=== PATIENT | female | born 1960 | race Caucasian/White ===

== ENCOUNTER → 2017-05-10 | Outpatient (CLI) | payer OTHER, BC | LOC: MC.RAD 05-03 13:20 | DX: Z12.31 Encounter for screening mammogram for malignant neoplasm of breast (principal) ==

== ENCOUNTER → 2017-08-05 | Outpatient (CLI) | payer OTHER, BC | LOC: COL.RAD 10:53 | DX: N20.0 Calculus of kidney (principal); K44.9 Diaphragmatic hernia without obstruction or gangrene; Z90.710 Acquired absence of both cervix and uterus | CPT/HCPCS: J7050; Q9967 ==

== ENCOUNTER → 2018-08-12 | Outpatient (CLI) | payer OTHER, BC | LOC: MC.RAD 06-11 13:00 | DX: Z12.31 Encounter for screening mammogram for malignant neoplasm of breast (principal) ==

== ENCOUNTER 2019-07-24 06:53 | Day surgery (SDC) | payer OTHER, BC ==
[~2019-07-24] VITALS: Ht 172.7 cm; Wt 86.8 kg
[2019-07-24 07:42] VITALS: BP 112/87; PULSE 71; TEMP 97.1
[2019-07-24] MEDS ORDERED: LIPITOR 40MG TA40 MG PO (07:48)
[2019-07-24] MEDS ORDERED: ESTRACE 1MG1 MG/TAB PO (07:48)
[2019-07-24] MEDS ORDERED: ADVIL PM 38 MG-1 TAB PO (07:49)
[2019-07-24] MEDS ORDERED: MOTRIN 200200 MG/TAB PO (07:49)
[2019-07-24 09:15] VITALS: BP 123/73; PULSE 74; TEMP 97.1
--- NOTE | 2019-07-24 09:15 | NUR ---
Pt to GI bay 6 via cart from [facility]. Pt drowsy, but awake. Denies pain or nausea. Pt ambulates to recliner with stand by assistance. Warm blanket provided. in room. Muffin and sprite provided. Will continue to monitor. Call light within reach.
[2019-07-24 09:30] VITALS: BP 126/67; PULSE 66
--- NOTE | 2019-07-24 09:30 | NUR ---
Pt continues to rest. Denies pain or nausea. Tolerating food and fluid without diffiuclties. Call light within reach.
[2019-07-24 09:45] VITALS: BP 106/66; PULSE 70
--- NOTE | 2019-07-24 09:45 | NUR ---
Pt continues to rest. Denies needs. Call light lwithin reach.
[2019-07-24 10:00] VITALS: BP 112/58; PULSE 56
--- NOTE | 2019-07-24 10:00 | NUR ---
into consult with pt and .
--- NOTE | 2019-07-24 10:15 | NUR ---
Discharge instructions reviewed. Pt voices understanding. IV site discontinued with all parts intact. Pt up to dress. Call light within reach.
--- NOTE | 2019-07-24 10:30 | NUR ---
Pt escorted to private car via wheel chair. Pt accompanied home by her .
== END 2019-07-24 10:30 | disposition home or self-care (01) ==
LOC: SDCO 06:53
DX: Z12.11 Encounter for screening for malignant neoplasm of colon (principal); D12.5 Benign neoplasm of sigmoid colon; K57.30 Diverticulosis of large intestine without perforation or abscess without bleeding; E78.00 Pure hypercholesterolemia, unspecified; Z88.3 Allergy status to other anti-infective agents; Z88.2 Allergy status to sulfonamides
CPT/HCPCS: J2250; J2405; J3010; J7030

== ENCOUNTER → 2019-11-16 | Outpatient (CLI) | payer BC ==
[~2019-11-16] MED LIST: ADVIL PM 38 MG-1 TAB PO; ESTRACE 1MG1 MG/TAB PO; LIPITOR 40MG TA40 MG PO; MOTRIN 200200 MG/TAB PO
== END ==
LOC: MC.RAD 09-29 13:00
DX: Z12.31 Encounter for screening mammogram for malignant neoplasm of breast (principal)

== ENCOUNTER → 2021-05-10 | Outpatient (CLI) | payer BC | LOC: MC.RAD 07:30 | DX: Z12.31 Encounter for screening mammogram for malignant neoplasm of breast (principal) ==

== ENCOUNTER → 2022-06-20 | Outpatient (CLI) | payer BC | LOC: MC.RAD 07:49 | DX: Z12.31 Encounter for screening mammogram for malignant neoplasm of breast (principal) ==

== ENCOUNTER 2022-10-23 15:49 | Inpatient (IN) | payer BC ==
[~2022-10-23] VITALS: Ht 172.7 cm; Wt 90.4 kg
[2022-10-23 16:34] VITALS: BP 163/51; PULSE 96; TEMP 99
[2022-10-23 17:13] LABS: BASO % 0.2 % (0.0-2.0); EOS # 0.1 K/mm3 (0.0-0.7); EOS % 0.3 % (0.0-4.0); GRAN # 14.1 K/mm3 (1.4-6.5); GRAN % 87.5 % (42.2-75.2); HEMOGLOBIN 11.9 g/dl (12.5-16.0); LYMPH # 0.9 K/mm3 (1.2-3.4); LYMPH % 5.7 % (20.0-51.0); MEAN CELL VOLUME 82 fl (80.0-100.0); MEAN CORPUSCULAR HEMOGLOBIN 27 pg (27-31); MEAN CORPUSCULAR HGB CONC 33 g/dl (33.0-37.0); MEAN PLATELET VOLUME 10.1 fl (7.4-10.4); MONO # 0.9 K/mm3 (0.1-0.6); MONO % 5.6 % (1.7-9.3); PLATELET COUNT 307 K/mm3 (130-400); RED BLOOD COUNT 4.38 M/mm3 (4.10-5.30); REDCELL DISTRIBUTION WIDTH-CV 12.9 % (11.5-14.5)
[2022-10-23 17:25] LABS: HEMATOCRIT 36.1 % (37.0-47.0)
[2022-10-23 17:33] LABS: ALBUMIN 3.1 gm/dL (3.4-4.8); BILIRUBIN,TOTAL 0.6 mg/dL (0.2-1.2); C-REACTIVE PROTEIN 13.05 mg/dL (0.00-0.50); CALCIUM 9.1 mg/dL (8.4-10.2); CREATININE, serum 0.81 mg/dL (0.57-1.11); POTASSIUM 3.3 mmol/L (3.5-4.5); TOTAL PROTEIN 6.4 gm/dL (6.2-8.1)
--- NOTE | 2022-10-23 17:34 | NUR ---
LABS ARE NOW BACK. CALLED CT WHO WILL BE UP TO GET PATIENT FOR SCAN TONIGHT.
--- NOTE | 2022-10-23 17:40 | NUR ---
AT BEDSIDE TALKING WITH PATIENT AND .
[2022-10-23] MEDS ORDERED: TYLENOL 500MG500 MG PO (17:47)
--- NOTE | 2022-10-23 18:00 | NUR ---
CT AT BEDSIDE. PATIENT AMBULATED TO BATHROOM TO VOID, UA SENT TO LAB. PATIENT NOW OFF FLOOR FOR CT.
[2022-10-23 18:20] LABS: URINE APPEARANCE Clear (CLEAR/HAZY); URINE COLOR Yellow (YELLOW)
[2022-10-23 18:21] LABS: COLLECTION METHOD CLEAN CATCH; PH 5.5 (5.0-8.5); URINE BLOOD TRACE-INTACT (NEGATIVE); URINE GLUCOSE Negative (NEGATIVE); URINE KETONE 2+ (NEGATIVE); URINE NITRATE Negative (NEGATIVE); URINE PROTEIN(semi-quant) Negative (NEGATIVE); URINE UROBILINOGEN 0.2 E.U/dL (0.2-1.0)
[2022-10-23 18:22] LABS: SQUAMOUS EPITHELIAL None Seen /hpf (0-10); URINE BACTERIA None Seen /hpf (NONE SEEN); URINE RBC 0-2 /hpf (0-2)
[2022-10-23 19:40] VITALS: BP 160/64; PULSE 99; TEMP 99.3
[2022-10-23 23:52] VITALS: BP 137/51; PULSE 86; TEMP 98.8
[2022-10-24] VITALS (7 sets, daily range): BP systolic 115–149; BP diastolic 43–56; PULSE 63–84; TEMP 98.4–99.4
[2022-10-24 06:32] LABS: BASO % 0.2 % (0.0-2.0); EOS % 0.2 % (0.0-4.0); GRAN # 14.7 K/mm3 (1.4-6.5); GRAN % 83.3 % (42.2-75.2); HEMOGLOBIN 11.3 g/dl (12.5-16.0); LYMPH # 1.6 K/mm3 (1.2-3.4); LYMPH % 8.8 % (20.0-51.0); MEAN CELL VOLUME 84 fl (80.0-100.0); MEAN CORPUSCULAR HEMOGLOBIN 27 pg (27-31); MEAN CORPUSCULAR HGB CONC 33 g/dl (33.0-37.0); MONO # 1.1 K/mm3 (0.1-0.6); MONO % 6.1 % (1.7-9.3); PLATELET COUNT 301 K/mm3 (130-400); RED BLOOD COUNT 4.15 M/mm3 (4.10-5.30); REDCELL DISTRIBUTION WIDTH-CV 12.8 % (11.5-14.5)
[2022-10-24 06:36] LABS: HEMATOCRIT 34.7 % (37.0-47.0)
[2022-10-24 06:44] LABS: INR 1.1 (0.8-3.0); PROTHROMBIN TIME 12.6 SECONDS (9.7-12.8)
[2022-10-24 06:51] LABS: CALCIUM 8.4 mg/dL (8.4-10.2); CREATININE, serum 0.75 mg/dL (0.57-1.11); POTASSIUM 3.1 mmol/L (3.5-4.5)
--- NOTE | 2022-10-24 09:00 | NUR ---
SW met with the patient to discuss discharge plan. The patient lives in [place] with her , Loyd (ph#[phone]). She reports independence with ADLs and does not have any DME. The patient's PCP is Dr. Gena Matthews and she receives her medications from [facility] and [facility]. The patient does not have a DPOA-HC in EMR, but she states that she does have one completed and that it designates her . The patient plans to return home with her upon discharge. No additional needs at this time. *Discharge plan: home with *
--- NOTE | 2022-10-24 10:37 | NUR ---
PATIENT ALERT AND ORIENTED X4. VSS. PATIENT HERE FOR PELVIC MOUND/CELLULITIS. PATIENT REPORTS PAIN 9/10, REQUESTS PAIN MEDICAITON. IV TO LEFT AC WITH LR AT 100. POTASSIUM BEING REPLACED THROUGH IV. PATIENT NPO AWAITING ORDERS FROM DR. BRADFORD. CALL LIGHT WITHIN REACH.
--- NOTE | 2022-10-24 15:46 | NUR ---
Initial visit; Patient thanked Spider Assembler for looking in on her and offering God's blessings and to be kept in Spider Assembler's prayers.
[2022-10-25] VITALS (14 sets, daily range): BP systolic 72–152; BP diastolic 41–61; PULSE 56–90; TEMP 97.9–98.2
--- NOTE | 2022-10-25 06:10 | NUR ---
PATIENT ASSESSED AND MEDICATIONS GIVEN. BC PENDING. CONTINUES ON VANCO AND ZOSYN. GIVEN TORADOL 2X AND MORPHINE 2X. HER PEVLIC MOUND IS SWOLLEN, RED, AND WARM TO TOUCH. SHE STATES IT IS FEELING BETTER FROM WHEN SHE CAME IN BUT KNOWS IT MAY BE A LONG ROAD. CALL LIGHT IN REACH. BED IN LOWEST POSITION.
[2022-10-25 06:47] LABS: BASO % 0.2 % (0.0-2.0); EOS # 0.2 K/mm3 (0.0-0.7); EOS % 1.3 % (0.0-4.0); GRAN # 12.4 K/mm3 (1.4-6.5); GRAN % 80.2 % (42.2-75.2); HEMOGLOBIN 10.8 g/dl (12.5-16.0); LYMPH # 1.9 K/mm3 (1.2-3.4); LYMPH % 12.2 % (20.0-51.0); MEAN CELL VOLUME 84 fl (80.0-100.0); MEAN CORPUSCULAR HEMOGLOBIN 27 pg (27-31); MEAN CORPUSCULAR HGB CONC 32 g/dl (33.0-37.0); MEAN PLATELET VOLUME 9.9 fl (7.4-10.4); MONO # 0.8 K/mm3 (0.1-0.6); MONO % 5.3 % (1.7-9.3); PLATELET COUNT 298 K/mm3 (130-400); RED BLOOD COUNT 4.01 M/mm3 (4.10-5.30); REDCELL DISTRIBUTION WIDTH-CV 12.6 % (11.5-14.5)
[2022-10-25 06:52] LABS: HEMATOCRIT 33.6 % (37.0-47.0)
[2022-10-25 07:14] LABS: CALCIUM 8.6 mg/dL (8.4-10.2); CREATININE, serum 0.89 mg/dL (0.57-1.11)
--- NOTE | 2022-10-25 08:06 | NUR ---
Report received from CHRYSTAL Ramon; patient currently resting comfortably in bed; patient has no fluids or meds running through her peripheral line. No other lines or tubes are in place at this time.
--- NOTE | 2022-10-25 16:41 | NUR ---
Pt arrived to the floor from procedure. Pt is alert and oriented, has pain complaints 7-8/. Pt does appear to be uncomfortable. Will get pain medication
--- NOTE | 2022-10-25 19:00 | NUR ---
RECEIVED CHANGE OF SHIFT REPORT FROM DAY SHIFT RN. PATIENT DENIES ANY NEEDS AT TIME OF REPORT.
[2022-10-26 03:54] VITALS: BP 112/46; PULSE 67; TEMP 97.7
--- NOTE | 2022-10-26 07:09 | NUR ---
CHANGE OF SHIFT REPORT GIVEN TO DAY SHIFT RNCHRIS. PATIENT REPORTS PAIN TO SURGICAL AREA WITH WALKING, PLACED ICE PACK TO SURGICAL AREA FOR COMFORT, SEE MAR FOR PAIN MEDS GIVEN. DENIES NAUSEA/CHEST PAIN/SOA DURING THE SHIFT. SCD CONTINUES TO BLE.
[2022-10-26 07:55] VITALS: BP 139/58; PULSE 59; TEMP 97.6
[2022-10-26 08:40] LABS: BASO % 0.3 % (0.0-2.0); EOS # 0.3 K/mm3 (0.0-0.7); EOS % 2.7 % (0.0-4.0); GRAN # 7.1 K/mm3 (1.4-6.5); GRAN % 74.6 % (42.2-75.2); HEMOGLOBIN 10.5 g/dl (12.5-16.0); LYMPH # 1.4 K/mm3 (1.2-3.4); LYMPH % 14.4 % (20.0-51.0); MEAN CELL VOLUME 83 fl (80.0-100.0); MEAN CORPUSCULAR HEMOGLOBIN 27 pg (27-31); MEAN CORPUSCULAR HGB CONC 32 g/dl (33.0-37.0); MEAN PLATELET VOLUME 9.8 fl (7.4-10.4); MONO # 0.7 K/mm3 (0.1-0.6); MONO % 7.4 % (1.7-9.3); PLATELET COUNT 298 K/mm3 (130-400); REDCELL DISTRIBUTION WIDTH-CV 12.7 % (11.5-14.5)
[2022-10-26 08:43] LABS: HEMATOCRIT 32.5 % (37.0-47.0)
[2022-10-26 08:58] LABS: CALCIUM 8.8 mg/dL (8.4-10.2); CREATININE, serum 0.97 mg/dL (0.57-1.11); POTASSIUM 3.7 mmol/L (3.5-4.5)
--- NOTE | 2022-10-26 09:44 | NUR ---
Patient resting in bed. and hospitalist have rounded. Plan of care reviewed. Per Instruction from , I&D packing removed. Patient did not tolerate well, pain was unbearable. Wound was swabbed and sent to lab per orders for gram stain. Wound was repacked with nugauze enough to keep wound open and what patient could tolerate. new gauze and abd pad. Patient medicated for pain post gauze removal. She is now able to rest more comfortably. Will continue to medicate patient for pain as needed. Iv antibioitcs as ordered. She ate a light breakfast. He spouse has been at bedside. Will continue to monitor.
--- NOTE | 2022-10-26 10:53 | NUR ---
Patient stand by assist to the bathroom. Voided without problem. Reports pain continuing to improve. Rating 4/10 at rest, elevated with any movement. Scds BLE. New mesh underwear & pad provided. Warm wipes provided, she reports having her own toothbrush. Stoneworker offered shower, reports exhaustion at this time. Will contiue to monitor.
[2022-10-26 11:38] VITALS: BP 133/57; PULSE 54; TEMP 98.2
--- NOTE | 2022-10-26 11:52 | NUR ---
Patient resting in bed. denies needs. Will monitor.
--- NOTE | 2022-10-26 14:32 | NUR ---
Patient resting in bed. Her spouse at bedside. Patient pain rating 5/10. [place]ford for pain as ordered. She does not like the side effect of pain medication making her feel "foggy". We did review other pain medication options. She does not want pain to become severe again. Will monitor
[2022-10-26 15:51] VITALS: BP 138/71; PULSE 58; TEMP 97.9
[2022-10-26] MEDS ORDERED: MOTRIN 600600 MG/TAB PO (16:23)
--- NOTE | 2022-10-26 17:38 | NUR ---
rounded this afternoon. Plan of care was reviewed. Changes to pain medication regiment made. Continues to rate pain 5/10. Patient up to the bathroom & voided & appeared to be in less pain. New abd pad provded. Her spouse at bedside. Dinner ordered. Will monitor.
--- NOTE | 2022-10-26 18:39 | NUR ---
Patient trying to eat her dinner tray, po intake encouraged, we discussed the importance of protien intake for wound healing. She report pain lightly increased with change in pain medication, we discussed other options if needed. Trinidad to resume cares.
[2022-10-26 19:49] VITALS: BP 135/59; PULSE 69; TEMP 97.9
--- NOTE | 2022-10-26 21:54 | NUR ---
SHIFT REPORT FROM HORTENCIA JARRELL. PATIENT IN BED ON ROOM ENTRY. ALERT AND ORIENTED. HS MEDS PER EMAR. PRN MORPHINE FOR PAIN. ZOSYN AND VANC PER EMAR. SBA TO BATHROOM AND VOIDED. DENIES ADDITIONAL NEEDS AT THIS TIME. CALL LIGHT IN REACH.
--- NOTE | 2022-10-27 02:54 | NUR ---
PATIENTS IV TO R FA INFILTRATED WITH +PHLEBITIS NOTED, PALPABLE CORDING. IV TO R FA DISCONTINUED. BANDAID APPLIED. RESTARTED X1 ASSIST TO R AC. NOTED RAISED RED RASH ON PATIENTS BACK WHEN AMBULATING TO BATHROOM, PATIENT ALSO STATED SHE HAS BEEN TAKING HER HOME ESTRADIOL AND LIPITOR THE PAST FEW NIGHTS. NOTIFIED JONG GILMORE AND HOLDING IV ABX AT THIS TIME. NO OTHER ORDERS.
[2022-10-27 03:21] VITALS: BP 135/60; PULSE 54; TEMP 98
[2022-10-27 06:07] LABS: BASO % 0.5 % (0.0-2.0); EOS # 0.2 K/mm3 (0.0-0.7); EOS % 2.7 % (0.0-4.0); GRAN # 6.1 K/mm3 (1.4-6.5); GRAN % 72.8 % (42.2-75.2); HEMOGLOBIN 11.5 g/dl (12.5-16.0); LYMPH # 1.4 K/mm3 (1.2-3.4); LYMPH % 17.1 % (20.0-51.0); MEAN CELL VOLUME 85 fl (80.0-100.0); MEAN CORPUSCULAR HEMOGLOBIN 27 pg (27-31); MEAN CORPUSCULAR HGB CONC 32 g/dl (33.0-37.0); MEAN PLATELET VOLUME 9.8 fl (7.4-10.4); MONO # 0.5 K/mm3 (0.1-0.6); MONO % 5.8 % (1.7-9.3); PLATELET COUNT 368 K/mm3 (130-400); RED BLOOD COUNT 4.23 M/mm3 (4.10-5.30); REDCELL DISTRIBUTION WIDTH-CV 12.4 % (11.5-14.5)
[2022-10-27 06:12] LABS: HEMATOCRIT 35.8 % (37.0-47.0)
[2022-10-27 06:28] LABS: CREATININE, serum 1.06 mg/dL (0.57-1.11); POTASSIUM 3.5 mmol/L (3.5-4.5)
[2022-10-27 07:07] VITALS: BP 133/58; PULSE 61; TEMP 98.2
--- NOTE | 2022-10-27 08:00 | NUR ---
Pt. laying in bed. Pt. is A&OX3, assessment complete. INT to rt. ac patent. Pt. reports pain at a 5 on pain scale at this time. Giving pain meds per orders. Pt. denies further needs, call light within reach.
[2022-10-27 11:00] VITALS: BP 153/64; PULSE 56; TEMP 97.6
[2022-10-27 15:08] VITALS: BP 133/57; PULSE 65; TEMP 98
--- NOTE | 2022-10-27 15:15 | NUR ---
MILLIE faxed referral to [facility]. Pt first choice [facility] for [facility].
[2022-10-27 19:20] VITALS: BP 138/50; PULSE 71; TEMP 97.7
[2022-10-27 23:31] VITALS: BP 151/61; PULSE 61; TEMP 98.4
[2022-10-28 03:27] VITALS: BP 163/68; PULSE 59; TEMP 98.1
[2022-10-28 07:47] VITALS: BP 171/68; PULSE 61; TEMP 98.6
--- NOTE | 2022-10-28 09:08 | NUR ---
Pt. laying in bed with at bedside. Pt. is A&OX3, assessment compelete. INT to rt. ac patent. Waiting for Dr. Santos for am dressing change. Pt. reports pain at a 4 on pain scale, gave pain meds preemtively for anticipation of wound packing. Pt. denies further needs, call light within reach.
[2022-10-28] MEDS ORDERED: NORVASC 5MG5 MG/TAB PO (09:36)
[2022-10-28] MEDS ORDERED: ULTRAM 50MG TAB50 MG PO (09:47)
[2022-10-28] MEDS ORDERED: DOXYCYCLINE HY100 MG PO (09:47)
--- NOTE | 2022-10-28 11:32 | NUR ---
Pt. has met discharge criteria.INT discontinued from rt. ac. Pt. and given discharg paperwork. Reviewed the paperwork with the pt. and her . Pt. and voice understanding. Pt. dressed and escorted out by MENG.
--- NOTE | 2022-10-29 10:44 | NUR ---
Jenn, at [facility] ([facility] contacted this SW. Jenn states that they do not come to [place]. MILLIE followed up with Wilfredo at [facility]. Wilfredo states that they can take the patient. MILLIE faxed discharge orders to Wilfredo.
== END 2022-10-28 11:30 | disposition home or self-care (01) | DRG 854 ==
LOC: SURG 15:49
PROVIDERS: Physician Assistant; ADMIT Surgery
PROC: 0W9N0ZZ Drainage of Female Perineum, Open Approach (ICD-10-PCS; principal; 2022-10-25 16:00)
DX: A41.02 Sepsis due to Methicillin resistant Staphylococcus aureus (principal); L03.315 Cellulitis of perineum; N76.4 Abscess of vulva; N76.2 Acute vulvitis; E78.5 Hyperlipidemia, unspecified; M19.90 Unspecified osteoarthritis, unspecified site; E87.6 Hypokalemia; D64.9 Anemia, unspecified; B95.62 Methicillin resistant Staphylococcus aureus infection as the cause of diseases classified elsewhere; I10 Essential (primary) hypertension; Z68.30 Body mass index [BMI] 30.0-30.9, adult; E66.9 Obesity, unspecified; Z87.442 Personal history of urinary calculi; Z87.891 Personal history of nicotine dependence; Z90.710 Acquired absence of both cervix and uterus; Z88.2 Allergy status to sulfonamides
CPT/HCPCS: A9284; C9113; J1170; J1885; J2270; J2405; J2543; J2704; J3010; J3370; J3480; J7050; J7120; Q9967

== ENCOUNTER → 2022-12-21 | Outpatient (CLI) | payer BC ==
[~2022-12-21] MED LIST changes: +DOXYCYCLINE HY100 MG PO; +MOTRIN 600600 MG/TAB PO; +NORVASC 5MG5 MG/TAB PO; +TYLENOL 500MG500 MG PO; +ULTRAM 50MG TAB50 MG PO
== END ==
LOC: COL.RAD 12-14 09:45
DX: M25.551 Pain in right hip (principal)
CPT/HCPCS: J3301; Q9967

== ENCOUNTER → 2023-07-30 | Outpatient (CLI) | payer BC | LOC: COL.RAD 12:46 | DX: M25.551 Pain in right hip (principal) | CPT/HCPCS: J0665; J3301; Q9967 ==

== ENCOUNTER → 2023-09-12 | Outpatient (CLI) | payer BC | LOC: MC.RAD 12:54 | DX: Z12.31 Encounter for screening mammogram for malignant neoplasm of breast (principal) ==